=== PATIENT | male | born 1990 | race Two or more races ===

== ENCOUNTER 2016-08-11 14:00 | Outpatient (CLI) | payer OTHER ==
[2016-08-11] MEDS ORDERED: IOPAMIDOL-300 100 ML VIAL IVP ONE (14:32)
== END 2016-08-11 14:01 | disposition home or self-care (01) ==
DX: R10.10 Upper abdominal pain, unspecified (principal); R11.10 Vomiting, unspecified
CPT/HCPCS: 74177; Q9967

== ENCOUNTER 2016-12-13 12:16 | Outpatient (CLI) | payer MEDICAID, OTHER ==
[2016-12-13 18:54] LABS: BASOPHILS # (AUTO) 0.1 10^3/uL (0.0-0.1); BASOPHILS % (AUTO) 1.2 %; EOSINOPHILS # (AUTO) 0.1 10^3/uL (0.0-0.7); EOSINOPHILS % (AUTO) 2.2 %; HCT - HEMATOCRIT 41.6 % (42.0-52.0); HGB - HEMOGLOBIN 13.9 g/dL (14.0-18.0); LYMPHOCYTES # (AUTO) 1.3 10^3/uL (1.5-3.5); LYMPHOCYTES % (AUTO) 28.9 %; MEAN CORPUSCULAR HEMOGLOBIN 30.5 pg (27.0-31.0); MEAN CORPUSCULAR HGB CONC 33.4 g/dL (32.0-36.0); MEAN CORPUSCULAR VOLUME 91.1 fL (80.0-94.0); MEAN PLATELET VOLUME 7.5 fL (7.4-11.4); MONOCYTES # (AUTO) 0.4 10^3/uL (0.0-1.0); MONOCYTES % (AUTO) 7.9 %; NEUTROPHILS # (AUTO) 2.7 10^3/uL (1.5-6.6); NEUTROPHILS % (AUTO) 59.8 %; NUCLEATED RED BLOOD CELLS AUTO 0.1 /100WBC; RED BLOOD COUNT 4.57 10^6/uL (4.70-6.10); RED CELL DISTRIBUTION WIDTH 12.4 % (12.0-15.0); UNCORRECTED WHITE BLOOD COUNT 4.4 x10^3/uL; WHITE BLOOD COUNT 4.4 x10^3/uL (4.8-10.8)
[2016-12-13 19:04] LABS: ALBUMIN/GLOBULIN RATIO 1.8 (1.0-2.2); BILIRUBIN,TOTAL 0.6 mg/dL (0.2-1.0); BUN - BLOOD UREA NITROGEN 16 mg/dL (6-20); CALCIUM 9.3 mg/dL (8.5-10.3); CARBON DIOXIDE - CO2 28 mmol/L (21-32); CHLORIDE 105 mmol/L (101-111); CHOL/HDL RATIO 2.5 (<5.0); CHOLESTEROL 152 mg/dL; GFR - MDRD 89 (>89); GLUCOSE 105 mg/dL (70-100); HDL CHOLESTEROL 62 mg/dL; LDL/HDL RATIO 1.2 (<3.6); POTASSIUM 3.7 mmol/L (3.5-5.0); SODIUM 140 mmol/L (135-145); TOTAL PROTEIN 7.1 g/dL (6.7-8.2); TRIGLYCERIDES 88 mg/dL; VLDL CHOLESTEROL 18 mg/dL
== END 2016-12-13 12:17 ==
LOC: LAB.N 12:16
PROVIDERS: ATTEND Physician Assistant
DX: R07.89 Other chest pain (principal)
CPT/HCPCS: 36415; 80053; 80061; 84443; 85025

== ENCOUNTER 2018-06-26 14:12 | Outpatient (CLI) | payer BC | END 2018-06-26 14:13 | disposition critical access hospital (66) | LOC: EMS 14:12 | PROVIDERS: ATTEND Surgery | DX: R00.0 Tachycardia, unspecified (principal) | CPT/HCPCS: A0425; A0427 ==

== ENCOUNTER 2018-06-26 14:33 | Emergency (ER) | payer BC, MEDICAID ==
[2018-06-26] MEDS ORDERED: SODIUM CHLORIDE 0.9% 1,000 ML IV ONE (14:48)
[2018-06-26 14:55] LABS: HGB - HEMOGLOBIN 14.8 g/dL (14.0-18.0); LYMPHOCYTES # (AUTO) 1.1 10^3/uL (1.5-3.5); LYMPHOCYTES % (AUTO) 22.1 %; MONOCYTES # (AUTO) 0.4 10^3/uL (0.0-1.0)
[2018-06-26 15:06] LABS: ALBUMIN 4.7 g/dL (3.2-5.5); ALBUMIN/GLOBULIN RATIO 1.5 (1.0-2.2); BILIRUBIN,TOTAL 0.6 mg/dL (0.2-1.0); CALCIUM 9.4 mg/dL (8.5-10.3); CREATININE 0.9 mg/dL (0.6-1.2); TOTAL PROTEIN 7.8 g/dL (6.7-8.2)
[2018-06-26 15:12] LABS: BASOPHILS % (AUTO) 0.8 %; EOSINOPHILS % (AUTO) 0.8 %; MEAN CORPUSCULAR HEMOGLOBIN 30.8 pg (27.0-31.0); MEAN CORPUSCULAR HGB CONC 34.6 g/dL (32.0-36.0); MEAN CORPUSCULAR VOLUME 88.9 fL (80.0-94.0); MEAN PLATELET VOLUME 7.3 fL (7.4-11.4); MONOCYTES % (AUTO) 8.2 %; NEUTROPHILS # (AUTO) 3.3 10^3/uL (1.5-6.6); NEUTROPHILS % (AUTO) 68.1 %; PLT - PLATELET COUNT 242 10^3/uL (130-450); RED CELL DISTRIBUTION WIDTH 12.4 % (12.0-15.0); WHITE BLOOD COUNT 4.9 x10^3/uL (4.8-10.8)
--- NOTE | 2018-06-26 15:14 | ED Physician Documentation ---
History of Present Illness - Stated complaint Stated Complaint: RHR - Chief complaint Chief Complaint: Critical Care - Additonal information Additional information: 28-year-old male had a sudden onset of a racing heart while at work and light headedness. EMS was called and an EKG was done in the office. The patient was found to have a rapid heart rate and findings suggestive of supraventricular tachycardia. The patient did Valsalva maneuvers which spontaneously resolved his symptoms. Presently, the patient has no active symptoms. Symptoms when they occurred were described as severe. No triggering factors. No other associated symptoms Review of Systems Constitutional: denies: Fever, Chills Eyes: denies: Discharge Ears: denies: Ear pain Nose: denies: Congestion Throat: denies: Sore throat Cardiac: reports: Palpitations. denies: Chest pain / pressure, Pedal edema Respiratory: denies: Cough GI: denies: Abdominal Pain : denies: Dysuria Skin: denies: Rash Musculoskeletal: denies: Neck pain Neurologic: denies: Syncope Immunocompromised: denies: Chemotherapy PD PAST MEDICAL HISTORY - Present Medications Home Medications: Ambulatory Orders Medication Instructions Recorded Confirmed Multivitamin [Multiple Vitamins] 06/26/18 raNITIdine [Zantac] 06/26/18 - Allergies Allergies/Adverse Reactions: Allergies Allergy/AdvReac Type Severity Reaction Status Date / Time amoxicillin Allergy Rash Verified 06/26/18 14:38 PD ED PE NORMAL - General General: Alert and oriented X 3, No acute distress - HEENT HEENT: Atraumatic, PERRL, EOMI, Ears normal - Neck Neck: Supple, no meningeal sign - Cardiac Cardiac: RRR, Strong equal pulses - Respiratory Respiratory: No respiratory distress - Abdomen Abdomen: Soft, Non tender - Derm Derm: Normal color - Extremities Extremities: No deformity, Normal ROM s pain - Neuro Neuro: Alert and oriented X 3, Normal speech - Psych Psych: Normal affect Results - Vitals Vitals: Vital Signs - 24 hr 06/26/18 06/26/18 06/26/18 14:32 15:00 15:30 Temperature 37.1 C Heart Rate 104 H 101 H 97 Respiratory 16 17 14 Rate Blood Pressure 131/78 H 116/82 H 106/80 O2 Saturation 100 98 99 06/26/18 16:00 Temperature Heart Rate 98 Respiratory 13 Rate Blood Pressure 112/82 H O2 Saturation 98 Oxygen O2 Source Room air - EKG (time done) 14:41 Rate: Rate (enter#) Rhythm: NSR Riley: Normal Intervals: Normal [place] QRS: Normal Ischemia: Normal ST segments - Labs Labs: Laboratory Tests 06/26/18 06/26/18 06/26/18 14:45 14:45 14:45 WBC 4.9 RBC 4.80 Hgb 14.8 Hct 42.7 MCV 88.9 MCH 30.8 MCHC 34.6 RDW 12.4 Plt Count 242 MPV 7.3 L Neut # (Auto) 3.3 Lymph # (Auto) 1.1 L [place] # (Auto) 0.4 Eos # (Auto) 0.0 Baso # (Auto) 0.0 Absolute Nucleated RBC 0.01 Nucleated RBC % 0.1 Sodium 140 Potassium 3.5 Chloride 104 Carbon Dioxide 28 Anion Gap 8.0 BUN 13 Creatinine 0.9 Estimated GFR (MDRD) 99 Glucose 101 H Calcium 9.4 Total Bilirubin 0.6 AST 24 ALT 16 Alkaline Phosphatase 68 Troponin I < 0.04 Total Protein 7.8 Albumin 4.7 Globulin 3.1 Albumin/Globulin Ratio 1.5 Lipase 28 TSH Free T4 06/26/18 14:45 WBC RBC Hgb Hct MCV MCH MCHC RDW Plt Count MPV Neut # (Auto) Lymph # (Auto) [place] # (Auto) Eos # (Auto) Baso # (Auto) Absolute Nucleated RBC Nucleated RBC % Sodium Potassium Chloride Carbon Dioxide Anion Gap BUN Creatinine Estimated GFR (MDRD) Glucose Calcium Total Bilirubin AST ALT Alkaline Phosphatase Troponin I Total Protein Albumin Globulin Albumin/Globulin Ratio Lipase TSH 1.99 Free T4 0.83 PD MEDICAL DECISION MAKING - ED course ED course: The patient's EKG from the outpatient setting is consistent with supraventricular tachycardia, the episode broke with Valsalva maneuvers. The patient's lab work here does not show any significant abnormality that would need urgent intervention. Presently the patient appears appropriate for discharge and ongoing outpatient management. I recommend following up with primary care for outpatient testing and possibly referral to cardiology. I di scussed warning signs and recommended returning for any worsening or any concerns. Departure - Departure Disposition: Home, Self Care Clinical Impression: SVT (supraventricular tachycardia) Condition: Good Instructions: Understanding Supraventricular Tachycardia SVT Follow-Up: Abhijeet Hi PA-C [Primary Care Provider] - Within 1 week (Please ask your primary care to arrange for an outpatient echocardiogram and Holter monitor to further assess your symptoms. You may also require a referral to cardiology) Comments: Please return to the emergency department immediately for any worsening or any concerns
[2018-06-26 16:05] LABS: THYROID STIMULATING HORMONE 1.99 uIU/mL (0.34-5.60)
[2018-06-26 16:07] LABS: FREE T4 (FREE THYROXINE) 0.83 ng/dL (0.58-1.64)
[2018-06-26 16:39] VITALS: BP 115/80
== END 2018-06-26 16:40 | disposition home or self-care (01) ==
LOC: EDUNIT# → ED 14:33
DX: I47.1 Supraventricular tachycardia (principal)
CPT/HCPCS: 36415; 80053; 83690; 84439; 84443; 84484; 85025; 93005; 99284; 99285

== ENCOUNTER 2018-07-25 08:21 | Outpatient (CLI) | payer BC | END 2018-07-25 08:22 | disposition home or self-care (01) | LOC: DI 08:21 | PROVIDERS: ATTEND Family Medicine | DX: I47.1 Supraventricular tachycardia (principal) | CPT/HCPCS: 93306 ==

== ENCOUNTER 2019-02-06 17:24 | Outpatient (CLI) | payer BC ==
[2019-02-06 17:36] LABS: BASOPHILS % (AUTO) 0.7 %; EOSINOPHILS # (AUTO) 0.1 10^3/uL (0.0-0.7); EOSINOPHILS % (AUTO) 1.6 %; HGB - HEMOGLOBIN 14.6 g/dL (14.0-18.0); LYMPHOCYTES # (AUTO) 1.7 10^3/uL (1.5-3.5); LYMPHOCYTES % (AUTO) 28.9 %; MEAN CORPUSCULAR HEMOGLOBIN 30.9 pg (27.0-31.0); MEAN CORPUSCULAR HGB CONC 33.5 g/dL (32.0-36.0); MEAN CORPUSCULAR VOLUME 92.4 fL (80.0-94.0); MEAN PLATELET VOLUME 9.1 fL (7.4-11.4); MONOCYTES # (AUTO) 0.5 10^3/uL (0.0-1.0); MONOCYTES % (AUTO) 8.8 %; NEUTROPHILS # (AUTO) 3.4 10^3/uL (1.5-6.6); NEUTROPHILS % (AUTO) 59.8 %; PLT - PLATELET COUNT 232 10^3/uL (130-450); RED BLOOD COUNT 4.72 10^6/uL (4.70-6.10); RED CELL DISTRIBUTION WIDTH 11.8 % (12.0-15.0); WHITE BLOOD COUNT 5.7 x10^3/uL (4.8-10.8)
[2019-02-06 17:47] LABS: AMYLASE 113 U/L (28-100); LIPASE 26 U/L (22-51)
== END 2019-02-06 17:25 | disposition home or self-care (01) ==
LOC: LAB 17:24
PROVIDERS: ATTEND Physician Assistant Medical
DX: R11.10 Vomiting, unspecified (principal); R10.13 Epigastric pain
CPT/HCPCS: 36415; 82150; 83690; 85025

== ENCOUNTER 2019-03-11 13:48 | Outpatient (CLI) | payer BC ==
[2019-03-11] MEDS ORDERED: IOVERSOL 320 100 ML VIAL IVP ONE ×2 (14:06→14:16)
--- NOTE | 2019-03-11 14:30 | CT Report ---
Reason: ELEVATED PANCREATIC ENZYME, EPIGASTRIC ABD PAIN Procedure Date: 03/11/2019 Accession Number: [id number] / [id number] Procedure: CT - ABDOMEN W/WO CPT Code: FULL RESULT: EXAM: CT ABDOMEN WITHOUT AND WITH CONTRAST EXAM DATE: 03/11/2019 02:15 PM. HISTORY: Elevated pancreatic enzyme, epigastric abdominal pain. COMPARISON: ABDOMEN/PELVIS W/ 08/11/2016 2:22 PM. TECHNIQUE: Routine helical CT imaging was performed through the abdomen before and after administration of IV contrast: Optiray 320 100 mL. Enteric contrast: No. Reconstruction: Coronal and sagittal. In accordance with CT protocol optimization, one or more of the following dose reduction techniques were utilized for this exam: automated exposure control, adjustment of mA and/or KV based on patient size, or use of iterative reconstructive technique. FINDINGS: Lung Bases: Unremarkable. Liver: Normal. No masses. Gallbladder/Bile Ducts: The gallbladder is decompressed. No evidence of biliary dilatation or cholelithiasis. Spleen: Normal. Pancreas: Normal. No masses or ductal obstruction. Adrenal Glands: Normal. Kidneys: Normal. No masses or hydronephrosis. Peritoneal Cavity/Bowel: Normal. No free fluid, free air or adenopathy. No masses or acute inflammatory process. The appendix is well visualized and normal. Vasculature: No aneurysms or other significant abnormality. Bones: No significant abnormality. Other: None. IMPRESSION: Normal examination. No evidence of pancreatitis or pancreatic mass. RADIA
== END 2019-03-11 13:49 | disposition home or self-care (01) ==
LOC: DI 13:48
PROVIDERS: ATTEND Physician Assistant Medical
DX: R10.13 Epigastric pain (principal); R74.8 Abnormal levels of other serum enzymes
CPT/HCPCS: 74170; Q9967

== ENCOUNTER 2019-07-01 10:00 | Outpatient (CLI) | payer BC ==
[2019-07-01 11:58] LABS: EOSINOPHILS # (AUTO) 0.1 10^3/uL (0.0-0.7); EOSINOPHILS % (AUTO) 1.3 %; HGB - HEMOGLOBIN 14.6 g/dL (14.0-18.0); LYMPHOCYTES # (AUTO) 0.9 10^3/uL (1.5-3.5); LYMPHOCYTES % (AUTO) 24.1 %; MEAN CORPUSCULAR HEMOGLOBIN 30.5 pg (27.0-31.0); MEAN CORPUSCULAR HGB CONC 33.1 g/dL (32.0-36.0); MEAN CORPUSCULAR VOLUME 92.1 fL (80.0-94.0); MEAN PLATELET VOLUME 9.8 fL (7.4-11.4); MONOCYTES # (AUTO) 0.4 10^3/uL (0.0-1.0); MONOCYTES % (AUTO) 9.1 %; NEUTROPHILS # (AUTO) 2.5 10^3/uL (1.5-6.6); NEUTROPHILS % (AUTO) 64.2 %; PLT - PLATELET COUNT 263 10^3/uL (130-450); RED BLOOD COUNT 4.79 10^6/uL (4.70-6.10); RED CELL DISTRIBUTION WIDTH 11.5 % (12.0-15.0); WHITE BLOOD COUNT 3.9 x10^3/uL (4.8-10.8)
[2019-07-01 12:12] LABS: ALBUMIN/GLOBULIN RATIO 1.9 (1.0-2.2); BILIRUBIN,TOTAL 0.8 mg/dL (0.2-1.0); CALCIUM 9.4 mg/dL (8.5-10.3); TOTAL PROTEIN 7.7 g/dL (6.7-8.2)
== END 2019-07-01 10:01 | disposition home or self-care (01) ==
LOC: LAB.N 10:00
PROVIDERS: ATTEND Physician Assistant Medical
DX: Z00.00 Encounter for general adult medical examination without abnormal findings (principal)
CPT/HCPCS: 36415; 80053; 84443; 85025

== ENCOUNTER 2019-08-25 16:02 | Outpatient (CLI) | payer BC ==
[2019-08-25 21:25] LABS: TRICHOMONAS VAGINALIS DNA NEGATIVE (NEGATIVE)
[2019-08-26 10:35] LABS: HEPATITIS C ANTIBODY NON-REACTIVE (NON-REACTIVE)
[2019-08-26 14:40] LABS: HIV AG/AB 4TH GEN NON-REACTIVE (NON-REACTIVE)
[2019-08-27 11:45] LABS: HSV 1 IGG TYPE SPECIFIC AB <0.90 index; HSV 2 IGG TYPE SPECIFIC AB <0.90 index
== END 2019-08-25 23:59 | disposition home or self-care (01) ==
LOC: LAB.N 16:02
PROVIDERS: ATTEND Physician Assistant Medical
DX: Z11.3 Encounter for screening for infections with a predominantly sexual mode of transmission (principal)
CPT/HCPCS: 36415; 81599; 86592; 86695; 86696; 86803; 87389; 87491; 87591; 87661

== ENCOUNTER 2019-08-27 07:42 | Outpatient (CLI) | payer BC | END 2019-08-27 23:59 | disposition home or self-care (01) | LOC: LAB.N 07:42 | PROVIDERS: ATTEND Physician Assistant Medical | DX: R68.82 Decreased libido (principal) | CPT/HCPCS: 36415; 81599; 84402; 84403 ==

== ENCOUNTER 2019-12-02 16:15 | Outpatient (CLI) | payer BC ==
[2019-12-02 21:39] LABS: TRICHOMONAS VAGINALIS DNA NEGATIVE (NEGATIVE)
== END 2019-12-02 23:59 | disposition home or self-care (01) ==
LOC: LAB.R 16:15
PROVIDERS: ATTEND Nurse Practitioner Family
DX: R36.9 Urethral discharge, unspecified (principal)
CPT/HCPCS: 87086; 87491; 87591; 87661

== ENCOUNTER 2020-08-04 08:05 | Outpatient (CLI) | payer BC ==
[2020-08-04 13:18] LABS: BASOPHILS % (AUTO) 0.9 %; EOSINOPHILS # (AUTO) 0.1 10^3/uL (0.0-0.7); EOSINOPHILS % (AUTO) 2.5 %; HGB - HEMOGLOBIN 15.3 g/dL (14.0-18.0); LYMPHOCYTES # (AUTO) 1.5 10^3/uL (1.5-3.5); LYMPHOCYTES % (AUTO) 33.1 %; MEAN CORPUSCULAR HEMOGLOBIN 30.6 pg (27.0-31.0); MEAN CORPUSCULAR HGB CONC 33.5 g/dL (32.0-36.0); MEAN CORPUSCULAR VOLUME 91.4 fL (80.0-94.0); MEAN PLATELET VOLUME 9.7 fL (7.4-11.4); MONOCYTES # (AUTO) 0.4 10^3/uL (0.0-1.0); MONOCYTES % (AUTO) 8.7 %; NEUTROPHILS # (AUTO) 2.4 10^3/uL (1.5-6.6); NEUTROPHILS % (AUTO) 54.6 %; PLT - PLATELET COUNT 235 10^3/uL (130-450); RED CELL DISTRIBUTION WIDTH 11.5 % (12.0-15.0); WHITE BLOOD COUNT 4.4 x10^3/uL (4.8-10.8)
[2020-08-04 13:43] LABS: ALBUMIN 4.5 g/dL (3.2-5.5); ALBUMIN/GLOBULIN RATIO 1.5 (1.0-2.2); ALKALINE PHOSPHATASE 60 IU/L (42-121); ALT ALANINE AMINOTRANSFERASE 17 IU/L (10-60); AST ASPARTATE AMINOTRANSFERASE 22 IU/L (10-42); BUN - BLOOD UREA NITROGEN 16 mg/dL (6-20); CALCIUM 9.3 mg/dL (8.5-10.3); CARBON DIOXIDE - CO2 27 mmol/L (21-32); CHLORIDE 100 mmol/L (101-111); CHOL/HDL RATIO 2.4 (<5.0); CHOLESTEROL 164 mg/dL; GLUCOSE 97 mg/dL (70-100); HDL CHOLESTEROL 69 mg/dL; LDL CHOLESTEROL,CALCULATED 85 mg/dL; LDL/HDL RATIO 1.2 (<3.6); TOTAL PROTEIN 7.5 g/dL (6.7-8.2); VLDL CHOLESTEROL 10 mg/dL
== END 2020-08-04 23:59 | disposition home or self-care (01) ==
LOC: LAB.WCP 08:05
PROVIDERS: ATTEND Nurse Practitioner Family
DX: Z00.00 Encounter for general adult medical examination without abnormal findings (principal)
CPT/HCPCS: 36415; 80053; 80061; 83721; 84443; 85025

== ENCOUNTER 2021-02-01 08:00 | Outpatient (CLI) | payer BC | END 2021-02-01 23:59 | disposition home or self-care (01) | LOC: LAB.N 08:00 | PROVIDERS: ATTEND Physician Assistant Medical | DX: R53.83 Other fatigue (principal); R53.81 Other malaise; Z20.822 Contact with and (suspected) exposure to COVID-19 ==

== ENCOUNTER 2021-08-15 08:00 | Outpatient (CLI) | payer BC ==
--- NOTE | 2021-08-15 18:29 | XRAY Report ---
PROCEDURE: Knee 2 View RT INDICATIONS: R KNEE PX TECHNIQUE: 2 views of the right knee(s) were acquired. COMPARISON: None. FINDINGS: BONES/JOINT: No acute, displaced fracture or dislocation. No substantial suprapatellar joint effusio n. 3 cm sclerotic focus in the distal femoral diaphysis, which may reflect a bone island. SOFT TISSUES: No significant abnormality. IMPRESSION: 1.No acute osseous abnormality. Reviewed by: Seferino Munguia MD on 08/15/2021 6:27 PM PST Approved by: Seferino Munguia MD on 08/15/2021 6:27 PM PST Station ID: [id number]
== END 2021-08-15 23:59 | disposition home or self-care (01) ==
LOC: DI.N 08:00
PROVIDERS: ATTEND Nurse Practitioner
DX: M25.561 Pain in right knee (principal)

== ENCOUNTER 2022-07-13 11:45 | Emergency (ER) | payer OTHER, BC ==
--- NOTE | 2022-07-13 11:55 | ED Physician Documentation ---
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 Onset of low back pain significantly and abrupt.) Recently seen: Not recently seen Review of Systems Constitutional: denies: Fever, Chills GI: denies: Abdominal Pain, Nausea, Vomiting : denies: Incontinent Skin: denies: Rash, Lesions Neurologic: denies: Focal weakness, Numbness PD PAST MEDICAL HISTORY - Past Medical History Cardiovascular: None Respiratory: None Neuro: None Endocrine/Autoimmune: None - Present Medications Home Medications: Ambulatory Orders Medication Instructions Recorded Confirmed Multivitamin [Multiple Vitamins] 06/26/18 raNITIdine [Zantac] 06/26/18 Naproxen 500 mg PO BID #20 tab 07/13/22 tiZANidine [Zanaflex] 4 mg PO Q8H PRN #25 tablet 07/13/22 - Allergies Allergies/Adverse Reactions: Allergies Allergy/AdvReac Type Severity Reaction Status Date / Time amoxicillin Allergy Rash Verified 06/26/18 14:38 PD ED PE NORMAL - Vitals Vital signs reviewed: Yes - General General: Alert and oriented X 3, Well developed/nourished, Other (appears uncomfortable with guarded roM of the lumbar area. ) - Abdomen Abdomen: Soft, Non tender - Male Male : Deferred - Rectal Rectal: Deferred - Back Back: No CVA TTP, No spinal TTP (but has tenderness right paralumbar area adjactent muscles. no rash redness nor sores. ) - Derm Derm: Normal color, Warm and dry - Extremities Extremities: No tenderness to palpate, No edema, No calf tenderness / cord - Neuro Neuro: Alert and oriented X 3, No motor deficit, No sensory deficit Results - Vitals Vitals: Vital Signs - 24 hr 07/13/22 11:58 Temperature 36.5 C Heart Rate 72 Respiratory 18 Rate Blood Pressure 118/77 O2 Saturation 100 Oxygen O2 Source Room air - Rads (name of study) lumbar xray Radiology: Prelim report reviewed (no acute process. Normal discs/vertebra and soft tissue. ), See rad report PD Medical Decision Making - ED course Complexity details: reviewed results, re-evaluated patient (he declined Rx for opioid meds. ), considered differential (no red flags with regard to fever, neuro symptoms, forceful injury, but it was abrupt pain with bending/lifting. consider xray to ensure no obvious spondylolisthesis nor notable bone lesions, disc space abnormality. He does not have symptoms to support need for MRI. 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 tomorrow off if needed. Departure - Departure Disposition: 01 Home, Self Care Clinical Impression: Low back strain Qualifiers: Encounter type: initial encounter Qualified Code(s): S39.012A - Strain of muscle, fascia and tendon of lower back, initial encounter Condition: Stable Record reviewed to determine appropriate education?: Yes Instructions: ED Sprain Strain Lumbar Follow-Up: Tapan Singh MD [Primary Care Provider] - Prescriptions: Naproxen 500 mg PO BID #20 tab tiZANidine [Zanaflex] 4 mg PO Q8H PRN #25 tablet PRN Reason: Spasms Comments: Your x-ray appears normal. This does not preclude problems related to the muscles ligaments or even sometimes the discs. It sounds like muscle or ligament strain in your back and I would presume it will improve with heat, stretching, decreased use and physical treatment such as massage/chiropractic. Medications can be used of anti-inflammatory and muscle relaxants. I wrote for some naproxen and tizanidine. Topical muscle rub or such sometimes is helpful but often not. Off work today. See how you are tomorrow. Recheck if not improving well over the next few days. Is any prescriptions to [facility]. Forms: Activity restrictions Discharge Date/Time: 07/13/22 13:08
[2022-07-13 12:03] VITALS: BP 118/77
[2022-07-13] MEDS ORDERED: methocarbamoL 500 MG TABLET PO STA (12:09)
[2022-07-13] MEDS ORDERED: ACETAMINOPHEN 500 MG TABLET PO STA (12:09)
--- NOTE | 2022-07-13 12:40 | XRAY Report ---
PROCEDURE: Lumbar Spine 2 View INDICATIONS: abrupt low back pain bending today TECHNIQUE: 2 views of the lumbar spine were acquired. COMPARISON: None. FINDINGS: Bones: 5 [id number] vertebrae are present. There is normal bony alignment. No vertebral body compression fractures. No suspicious bony lesions. Soft tissues: Overlying bowel gas pattern is normal. No suspicious soft tissue calcifications. IMPRESSION: No visualized acute fracture or dislocation. However, occult injury cannot be excluded. Recommend short interval imaging follow-up in 7-10 days as clinically indicated for additional evalua tion. Reviewed by: Ruby Cantu MD on 07/13/2022 12:39 PM PST Approved by: Ruby Cantu MD on 07/13/2022 12:39 PM PST Station ID: [id number]
== END 2022-07-13 13:08 | disposition home or self-care (01) ==
LOC: ED 11:45
DX: S39.012A Strain of muscle, fascia and tendon of lower back, initial encounter (principal); X58.XXXA Exposure to other specified factors, initial encounter; Y93.F2 Activity, caregiving, lifting; Y92.538 Other ambulatory health services establishments as the place of occurrence of the external cause; Y99.0 Civilian activity done for income or pay
CPT/HCPCS: 72100; 99283; A9270

== ENCOUNTER 2023-08-22 09:07 | Outpatient (CLI) | payer BC ==
[2023-08-22 11:58] LABS: BASOPHILS # (AUTO) 0.1 10^3/uL (0.0-0.1); BASOPHILS % (AUTO) 0.9 %; EOSINOPHILS # (AUTO) 0.1 10^3/uL (0.0-0.7); HCT - HEMATOCRIT 42.7 % (42.0-52.0); HGB - HEMOGLOBIN 14.2 g/dL (14.0-18.0); LYMPHOCYTES # (AUTO) 0.9 10^3/uL (1.5-3.5); LYMPHOCYTES % (AUTO) 16.2 %; MEAN CORPUSCULAR HEMOGLOBIN 31.4 pg (27.0-31.0); MEAN CORPUSCULAR HGB CONC 33.3 g/dL (32.0-36.0); MEAN CORPUSCULAR VOLUME 94.5 fL (80.0-94.0); MEAN PLATELET VOLUME 9.5 fL (7.4-11.4); MONOCYTES # (AUTO) 0.5 10^3/uL (0.0-1.0); MONOCYTES % (AUTO) 7.9 %; NEUTROPHILS # (AUTO) 4.2 10^3/uL (1.5-6.6); NEUTROPHILS % (AUTO) 73.8 %; PLT - PLATELET COUNT 258 10^3/uL (130-450); RED BLOOD COUNT 4.52 10^6/uL (4.70-6.10); RED CELL DISTRIBUTION WIDTH 12.2 % (12.0-15.0); WHITE BLOOD COUNT 5.7 x10^3/uL (4.8-10.8)
[2023-08-22 12:30] LABS: ALBUMIN 4.5 g/dL (3.2-5.5); ALKALINE PHOSPHATASE 74 IU/L (42-121); ALT ALANINE AMINOTRANSFERASE 28 IU/L (10-60); AST ASPARTATE AMINOTRANSFERASE 25 IU/L (10-42); BILIRUBIN,TOTAL 0.5 mg/dL (0.2-1.0); BUN - BLOOD UREA NITROGEN 15 mg/dL (6-20); CALCIUM 9.6 mg/dL (8.5-10.3); CARBON DIOXIDE - CO2 33 mmol/L (21-32); CHLORIDE 103 mmol/L (101-111); CHOL/HDL RATIO 2.3 (<5.0); CHOLESTEROL 137 mg/dL; CREATININE 1.2 mg/dL (0.6-1.3); GFR - MDRD 69 (>89); GLUCOSE 110 mg/dL (74-104); HDL CHOLESTEROL 60 mg/dL; LDL CHOLESTEROL,CALCULATED 66 mg/dL; LDL/HDL RATIO 1.1 (<3.6); POTASSIUM 4.5 mmol/L (3.5-4.5); SODIUM 138 mmol/L (135-145); TOTAL PROTEIN 6.7 g/dL (6.4-8.9); TRIGLYCERIDES 54 mg/dL (48-352); VLDL CHOLESTEROL 11 mg/dL
[2023-08-22 12:32] LABS: THYROID STIMULATING HORMONE 2.05 uIU/mL (0.34-5.60)
== END 2023-08-22 09:08 | disposition home or self-care (01) ==
LOC: LAB.N 09:07
PROVIDERS: ATTEND Internal Medicine
DX: R61 Generalized hyperhidrosis (principal); Z13.220 Encounter for screening for lipoid disorders; I47.10 Supraventricular tachycardia, unspecified
CPT/HCPCS: 36415; 80053; 80061; 83721; 84443; 85025

== ENCOUNTER 2023-08-31 10:34 | Outpatient (CLI) | payer BC | END 2023-08-31 10:35 | disposition critical access hospital (66) | LOC: EMS 10:34 | DX: I47.10 Supraventricular tachycardia, unspecified (principal) | CPT/HCPCS: A0425; A0429 ==

== ENCOUNTER 2023-08-31 11:09 | Emergency (ER) | payer BC ==
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
[2023-08-31 11:36] LABS: BASOPHILS # (AUTO) 0.1 10^3/uL (0.0-0.1); BASOPHILS % (AUTO) 0.7 %; EOSINOPHILS % (AUTO) 0.4 %; HCT - HEMATOCRIT 46.5 % (42.0-52.0); HGB - HEMOGLOBIN 15.2 g/dL (14.0-18.0); LYMPHOCYTES # (AUTO) 1.1 10^3/uL (1.5-3.5); LYMPHOCYTES % (AUTO) 14.1 %; MEAN CORPUSCULAR HEMOGLOBIN 30.7 pg (27.0-31.0); MEAN CORPUSCULAR HGB CONC 32.7 g/dL (32.0-36.0); MEAN CORPUSCULAR VOLUME 93.9 fL (80.0-94.0); MEAN PLATELET VOLUME 8.9 fL (7.4-11.4); MONOCYTES # (AUTO) 0.5 10^3/uL (0.0-1.0); MONOCYTES % (AUTO) 6.9 %; NEUTROPHILS # (AUTO) 5.9 10^3/uL (1.5-6.6); NEUTROPHILS % (AUTO) 77.8 %; PLT - PLATELET COUNT 250 10^3/uL (130-450); RED BLOOD COUNT 4.95 10^6/uL (4.70-6.10); RED CELL DISTRIBUTION WIDTH 12.1 % (12.0-15.0); WHITE BLOOD COUNT 7.6 x10^3/uL (4.8-10.8)
[2023-08-31 11:54] LABS: ALBUMIN 4.6 g/dL (3.2-5.5); ALBUMIN/GLOBULIN RATIO 1.8 (1.0-2.2); BILIRUBIN,TOTAL 0.7 mg/dL (0.2-1.0); CALCIUM 10.1 mg/dL (8.5-10.3); CREATININE 1.3 mg/dL (0.6-1.3); POTASSIUM 4.3 mmol/L (3.5-4.5); TOTAL PROTEIN 7.1 g/dL (6.4-8.9)
[2023-08-31 11:57] LABS: TROPONIN I HIGH SENSITIVITY 6.4 ng/L (2.3-19.7)
[2023-08-31 13:29] VITALS: BP 126/80; O2SAT 100
--- NOTE | 2023-08-31 16:16 | XRAY Report ---
PROCEDURE: Chest 1V INDICATIONS: chest pain TECHNIQUE: One view of the chest was acquired. COMPARISON: None. FINDINGS: Surgical changes and devices: None. Lungs and pleura: No pleural effusions or pneumothorax. Lungs are clear. Mediastinum: Mediastinal contours appear normal. Heart size is normal. Bones and chest wall: No suspicious bony lesions. Overlying soft tissues appear unremarkable. IMPRESSION: No acute cardiopulmonary process. Reviewed by: Tapan Cortez MD on 08/31/2023 10:42 AM ORALIA Approved by: Tapan Cortez MD on 08/31/2023 10:42 AM ORALIA Station ID: [id number]
== END 2023-08-31 13:25 | disposition home or self-care (01) ==
LOC: EDUNIT# → ED 11:09
DX: I47.10 Supraventricular tachycardia, unspecified (principal); Z63.0 Problems in relationship with spouse or partner
CPT/HCPCS: 36415; 80053; 83690; 84484; 85025; 93005; 99283; 99284